=== PATIENT | male | born 1945 | race Caucasian/White ===

== ENCOUNTER 2018-12-02 08:25 | Outpatient (CLI) | payer BC, OTHER ==
[2018-12-02] MEDS ORDERED: Iopamidol 370 76% 100 ML VIAL ONE (09:22)
--- NOTE | 2018-12-02 11:08 | CT ---
CT ABDOMEN AND PELVIS WITH IV CONTRAST: Multiple axial tomograms were obtained through the abdomen and pelvis with IV enhancement. Oral cont rast was not administered. INDICATION: Prostate CA. Initial staging. COMPARISON: No comparison studies. FINDINGS: Lung bases clear. There are numerous low-density lesions seen throughout the liver. The largest of these is in the sup erior left lobe measuring 2.5 cm. There are 2 or 3 other lesions measuring in the 1.5 cm range. Num erous lesions are subcentimeter in dimension. These lesions are too numerous to count. The larger l esions show densities consistent with hepatic cysts. There are 2 nodular enhancing lesions seen in the spleen, one measuring 1.3 cm and the other measurin g approximately 2.0 cm. The larger lesion has a low-density center. Both of these lesions are most likely splenic hemangiomas. Pancreas unremarkable. Evaluation of adrenals revealed bilateral adrenal nodules. On the right, there is a low-density nodu le measuring 1.8 cm in the coronal plane. On the left, there is a heterogeneous nodule measuring 1.2 cm in the coronal plane. Both of these nodules have indeterminate densities on this single-phase st udy. Kidneys unremarkable. Small bowel lops appear normal. Stool and gas throughout the colon. Numerous small diverticula in t he sigmoid. Aorta shows atherosclerotic calcification but is normal caliber. No evidence of adenopathy. Images through the pelvis reveal an enlarged prostate which indents the floor of the bladder. The pr ostate measures 5.6 cm AP dimension x 6.3 cm width. No evidence of pelvic adenopathy. Osseous structures are unremarkable. No evidence of lytic or cesar tic lesion identified. IMPRESSION: 1. Numerous low-density lesions in the liver. The largest show densities suggesting multiple hepati c cysts. 2. There are 2 enhancing nodules in the spleen, most likely representing splenic hemangiomas. 3. Bilateral adrenal nodules. Both of these nodules are indeterminate on this single-phase study. CT abdomen with and without contrast following adrenal protocol would be necessary to adequately zina acterize these nodules. 4. Prostatic hypertrophy. POS: [facility]
--- NOTE | 2018-12-02 13:08 | NM ---
FWhole body bone scan Clinical history: Malignant neoplasm of prostate No prior comparison imaging. Radiopharmaceutical: 32.8 mCi technetium 99m MDP, IV FINDINGS: There is no scintigraphic abnormality of the axial or appendicular skeleton to indicate met astatic disease. There are scattered mild degenerative changes. Small volume excreted activity is see n at the urinary bladder. IMPRESSION: No scintigraphic evidence of osseous metastatic disease.
== END 2018-12-02 08:26 | disposition home or self-care (01) ==
LOC: CT 08:25
PROVIDERS: ATTEND Radiology Radiation Oncology
DX: C61 Malignant neoplasm of prostate (principal); K76.9 Liver disease, unspecified; D73.89 Other diseases of spleen; E27.8 Other specified disorders of adrenal gland; N40.0 Benign prostatic hyperplasia without lower urinary tract symptoms
CPT/HCPCS: 74177; 78306; 82565; A9503; Q9967